=== PATIENT | male | born 1970 | race African-American/Black ===

== ENCOUNTER 2018-07-24 11:07 | Emergency (ER) | payer MEDICAID ==
[~2018-07-24] VITALS: Ht 180.3 cm; Wt 104.0 kg
[2018-07-24] MEDS ORDERED: TETANUS, DIPHTHERIA, PERTUSSIS VAC/PF 0.5ML (>7YR OLD) IM ONE (15:30)
[2018-07-24] MEDS ORDERED: LIDOCAINE HCL/PF 1% 10 MG/ML 5ML VIAL IJ ONE (15:30)
[2018-07-24 16:29] VITALS: BP 141/100
== END 2018-07-24 16:32 | disposition home or self-care (01) ==
LOC: ER 11:07
DX: S01.511A Laceration without foreign body of lip, initial encounter (principal); W50.1XXA Accidental kick by another person, initial encounter; Y93.89 Activity, other specified; Y92.89 Other specified places as the place of occurrence of the external cause; Y99.8 Other external cause status
CPT/HCPCS: 12011; 90471; 90715; 99283; J3490; Z7610